=== PATIENT | female | born 1995 | race Caucasian/White ===

== ENCOUNTER 2016-05-23 16:35 | Emergency (ER) | payer SELFPAY ==
--- NOTE | 2016-05-23 17:27 | PD ---
HPI Chief Complaint: ETOH/Reyes Act Time Seen by Provider: 17:26 Travel History International Travel<30 days: No Contact w/Intl Traveler<30days: No Traveled to known affect area: No History of Present Illness HPI 21-year-old female brought in from local [facility] with acute alcohol intoxication Patient is reported to have drunk a whole bottle of whiskey. She is brought in by EMS and received 2000 mL normal saline as well as 4 mg Zofran IV. Patient is arousable but obviously heavily intoxicated. She has no complaints of pain or other symptoms. She has no known drug allergies. Patient is on spring. [facility] Past Medical History Medical History: Unable to Obtain Social History Alcohol Use: Yes Tobacco Use: No Substance Use: No Allergies-Medications (Allergen,Severity, Reaction): Coded Allergies: No Known Allergies (Unverified , 05/23/16) Review of Systems ROS Limitations: Intoxication General / Constitutional: No: Fever Eyes: No: Visual changes HENT: No: Headaches Cardiovascular: No: Chest Pain or Discomfort Respiratory: No: Shortness of Breath Gastrointestinal: No: Abdominal Pain Genitourinary: No: Dysuria Musculoskeletal: No: Pain Skin: No Rash Neurologic: No: Weakness Psychiatric: No: Depression Endocrine: No: Polydipsia Hematologic/Lymphatic: No: Easy Bruising Physical Exam Exam Limitations: Intoxication Narrative GENERAL: Patient is in no acute distress. SKIN: Warm and dry. Normal color. Normal turgor. No signs of abrasion or trauma. HEAD: Atraumatic. Normocephalic. EYES: Pupils equal and round. No scleral icterus. No injection or drainage. ENT: No nasal bleeding or discharge. Mucous membranes pink and moist. Pharynx is clear. NECK: Trachea midline. Neck is supple and nontender. CARDIOVASCULAR: Regular rate and rhythm. RESPIRATORY: No accessory muscle use. Clear to auscultation. Breath sounds equal bilaterally. GASTROINTESTINAL: Abdomen soft, non-tender, nondistended. Hepatic and splenic margins not palpable. MUSCULOSKELETAL: Extremities without clubbing, cyanosis, or edema. No obvious deformities. NEUROLOGICAL: Awake and alert. No obvious cranial nerve deficits. Motor grossly within normal limits. Five out of 5 muscle strength in the arms and legs. Somewhat slurred speech. PSYCHIATRIC: Intoxicated, but no suicidal or homicidal ideation. Data Data Last Documented VS Vital Signs Date Time Temp Pulse Resp B/P Pulse Ox O2 Delivery O2 Flow Rate FiO2 05/23/16 17:39 98.4 112 16 129/72 100 Room Air Orders Complete Blood Count With Diff (05/23/16 17:44) Basic Metabolic Panel (Bmp) (05/23/16 17:44) Urinalysis - C+S If Indicated (05/23/16 17:44) Ed Urine Pregnancytest Poc (05/23/16 17:44) Drug Screen, Random Urine (05/23/16 17:44) Alcohol (Ethanol) (05/23/16 17:44) Sodium Chlor 0.9% 1000 Ml Inj (Ns 1000 M (05/23/16 17:45) Labs Laboratory Tests Test 05/23/16 18:00 White Blood Count 10.1 TH/MM3 Red Blood Count 4.06 MIL/MM3 Hemoglobin 11.9 GM/DL Hematocrit 35.7 % Mean Corpuscular Volume 87.8 FL Mean Corpuscular Hemoglobin 29.3 PG Mean Corpuscular Hemoglobin 33.4 % Concent Red Cell Distribution Width 14.8 % Platelet Count 225 TH/MM3 Mean Platelet Volume 8.6 FL Neutrophils (%) (Auto) 78.8 % Lymphocytes (%) (Auto) 12.0 % Monocytes (%) (Auto) 8.9 % Eosinophils (%) (Auto) 0.1 % Basophils (%) (Auto) 0.2 % Neutrophils # (Auto) 8.0 TH/MM3 Lymphocytes # (Auto) 1.2 TH/MM3 Monocytes # (Auto) 0.9 TH/MM3 Eosinophils # (Auto) 0.0 TH/MM3 Basophils # (Auto) 0.0 TH/MM3 CBC Comment DIFF FINAL Differential Comment Sodium Level 143 MEQ/L Potassium Level 3.5 MEQ/L Chloride Level 110 MEQ/L Carbon Dioxide Level 22.8 MEQ/L Anion Gap 10 MEQ/L Blood Urea Nitrogen 7 MG/DL Creatinine 0.57 MG/DL Estimat Glomerular Filtration 133 ML/MIN Rate Random Glucose 110 MG/DL Calcium Level 7.9 MG/DL Ethyl Alcohol Level 227 MG/DL [facility] Medical Decision Making Medical Screen Exam Complete: Yes Emergency Medical Condition: Yes Differential Diagnosis EtOH intoxication. Possible polysubstance abuse. Calle's act. Narrative Course Labs ordered including CBC, CMP, urinalysis and urine . Serum EtOH levels are ordered as well. Patient is given 1000 mL's normal saline bolus as well. Patient is moved to alpha pod. 1950 hrs. patient is alert and oriented and able to ambulate without difficulty. Patient has a ride to go home. Patient is felt to be stable to be discharged home. Diagnosis Primary Impression: Acute alcohol intoxication Qualified Code: F10.120 - Acute alcohol intoxication, uncomplicated Referrals: Primary Care Physician Patient Instructions: General Instructions Additional Instructions: Did not drink anymore alcohol. Stay with friends who are not drinking alcohol. Rest and push fluids. Return to emergency department if symptoms warrant. Med/Other Pt SpecificInfo: No Meds Exist/No RX given Disposition: DISCHARGE HOME Condition: Stable Sanjiv Coley May 23, 2016 17:27
[2016-05-23 17:39] VITALS: BP 129/72; PULSE 112; RESP 16; TEMP 98.4; O2SAT 100
[2016-05-23] MEDS ORDERED: SODIUM CHLOR 0.9% 1000 ML INJ 1,000 ML IV ONE (17:45)
[2016-05-23 18:10] LABS: BASOPHIL % 0.2 % (0.0-2.0); EOSINOPHIL % 0.1 % (0.0-4.0); HEMATOCRIT 35.7 % (35.0-46.0); HEMO FLAGS DIFF FINAL; LYMPHOCYTE # 1.2 TH/MM3 (1.0-4.8); MEAN CELL VOLUME 87.8 FL (80.0-100.0); MEAN CORPUSCULAR HEMOGLOBIN 29.3 PG (27.0-34.0); MEAN CORPUSCULAR HGB CONC 33.4 % (32.0-36.0); MONO % 8.9 % (0.0-8.0); NEUT % 78.8 % (16.0-70.0); PLATELET COUNT 225 TH/MM3 (150-450); RED BLOOD COUNT 4.06 MIL/MM3 (4.00-5.30); RED CELL DISTRIBUTION WIDTH 14.8 % (11.6-17.2); WHITE BLOOD COUNT 10.1 TH/MM3 (4.0-11.0)
[2016-05-23 18:55] LABS: BICARBONATE 22.8 MEQ/L (21.0-32.0); POTASSIUM 3.5 MEQ/L (3.5-5.1)
== END 2016-05-24 01:18 | disposition home or self-care (01) ==
LOC: NEPA 16:35
DX: F10.120 Alcohol abuse with intoxication, uncomplicated (principal); Y90.7 Blood alcohol level of 200-239 mg/100 ml
CPT/HCPCS: 80048; 80307; 85025; 99284; J7030